=== PATIENT | male | born 1970 | race Caucasian/White ===

== ENCOUNTER 2017-11-28 08:25 | Day surgery (SDC) | payer MEDICARE, OTHER ==
[~2017-11-28] VITALS: Ht 175.3 cm; Wt 136.4 kg
[~2017-11-28 08:25] MED LIST: ALBU8.5H8 IH; ARIP15TA2 PO; ASPI81 PO; ATOR20TA86 PO; BACL10TA PO; DOCU250C16 PO; FLUT12AE3 IH; GABA-529 PO; GLIP10 PO; HYDR50CA10 PO; INSLAN SQ; INSNOV SQ; ISOS30TA6 PO; LINA5TAB PO; LOSA50TA37 PO; MELO-107 PO; METF-444 PO; METO25 PO; MIRT30 PO; PERCT10 PO; THEO200T39 PO; TRAM50TA4 PO; TRIL8 PO
[2017-11-28] MEDS ORDERED: METOPROLOL TARTRATE 50 MG TABLET PO PRN (08:30)
[2017-11-28] MEDS ORDERED: 0.9% SODIUM CHLORIDE 10 ML SYRINGE IVP PRN (08:30)
[2017-11-28 09:00] LABS: ANION GAP 8 mmol/L (8-16); CALCIUM, TOTAL 8.4 mg/dL (8.8-10.5); CARBON DIOXIDE 30 mmol/L (22-29); CHLORIDE 105 mmol/L (98-107); CREATININE 0.86 mg/dL (0.60-1.30); GLOMERULAR FILTR. RATE CALC > 60 mL/min (>60); GLUCOSE,RANDOM 147 mg/dL (70-110); POTASSIUM 3.9 mmol/L (3.5-5.1); SODIUM SERUM 143 mmol/L (136-145); UREA NITROGEN, BLOOD 5 mg/dL (7-18)
[2017-11-28] MEDS ORDERED: METOPROLOL TARTRATE 50 MG TABLET ONE (09:00)
[2017-11-28] MEDS ORDERED: OMEP20 PO (09:11)
[2017-11-28] MEDS ORDERED: SACU1TAB PO (09:11)
[2017-11-28] MEDS ORDERED: LOPE2 PO (09:11)
[2017-11-28] MEDS ORDERED: NAPR-58 PO (09:11)
[2017-11-28] MEDS ORDERED: LIRA0.6P SQ (09:11)
[2017-11-28] MEDS ORDERED: NITR.4P TD (09:11)
[2017-11-28] MEDS ORDERED: ALBU8HFA PO (09:11)
[2017-11-28] MEDS ORDERED: FLUT110HFA IH (09:11)
== END 2017-11-28 10:20 | disposition home or self-care (01) ==
LOC: SURGERY 08:25 → EDSTATUS 10:00 → SURGERY 10:20
PROVIDERS: ATTEND Internal Medicine Cardiovascular Disease
DX: I42.5 Other restrictive cardiomyopathy (principal); Z53.8 Procedure and treatment not carried out for other reasons; I21.3 ST elevation (STEMI) myocardial infarction of unspecified site; F20.89 Other schizophrenia; F10.21 Alcohol dependence, in remission; E11.40 Type 2 diabetes mellitus with diabetic neuropathy, unspecified; I10 Essential (primary) hypertension; G47.30 Sleep apnea, unspecified; Z79.82 Long term (current) use of aspirin; Z79.4 Long term (current) use of insulin; Z79.891 Long term (current) use of opiate analgesic; Z79.84 Long term (current) use of oral hypoglycemic drugs; Z79.899 Other long term (current) drug therapy; Z98.890 Other specified postprocedural states
CPT/HCPCS: 93005

== ENCOUNTER 2017-12-07 08:07 | Day surgery (SDC) | payer MEDICARE, OTHER ==
[~2017-12-07] VITALS: Ht 175.3 cm; Wt 136.4 kg
[~2017-12-07 08:07] MED LIST changes: +0.9% SODIUM CHLORIDE 10 ML SYRINGE IVP PRN; +ALBU8HFA PO; +LIRA0.6P SQ; +LOPE2 PO; +NAPR-58 PO; +NITR.4P TD; +OMEP20 PO; +SACU1TAB PO
[2017-12-07] MEDS ORDERED: METOPROLOL TARTRATE 50 MG TABLET ONE (08:32)
[2017-12-07 08:56] LABS: ANION GAP 7 mmol/L (8-16); CALCIUM, TOTAL 8.4 mg/dL (8.8-10.5); CARBON DIOXIDE 30 mmol/L (22-29); CHLORIDE 102 mmol/L (98-107); CREATININE 0.75 mg/dL (0.60-1.30); GLOMERULAR FILTR. RATE CALC > 60 mL/min (>60); GLUCOSE,RANDOM 130 mg/dL (70-110); POTASSIUM 3.9 mmol/L (3.5-5.1); SODIUM SERUM 139 mmol/L (136-145); UREA NITROGEN, BLOOD 9 mg/dL (7-18)
[2017-12-07] MEDS ORDERED: METOPROLOL TARTRATE 50 MG TABLET PO ONE (09:00)
[2017-12-07] MEDS ORDERED: METOPROLOL TARTRATE 5 MG/5 ML VIAL ONE ×6 (10:00→13:07)
[2017-12-07] MEDS ORDERED: METOPROLOL TARTRATE 5 MG/5 ML VIAL IVP ONE ×6 (10:15→13:15)
== END 2017-12-07 13:40 | disposition home or self-care (01) ==
LOC: SURGERY 08:07 → EDSTATUS 10:00 → SURGERY 13:40
PROVIDERS: ATTEND Internal Medicine Cardiovascular Disease
DX: I21.3 ST elevation (STEMI) myocardial infarction of unspecified site (principal); Z53.8 Procedure and treatment not carried out for other reasons; I42.5 Other restrictive cardiomyopathy; I11.0 Hypertensive heart disease with heart failure; I50.9 Heart failure, unspecified; I24.8 Other forms of acute ischemic heart disease; I08.3 Combined rheumatic disorders of mitral, aortic and tricuspid valves; J45.998 Other asthma; E78.00 Pure hypercholesterolemia, unspecified; F20.89 Other schizophrenia; F32.9 Major depressive disorder, single episode, unspecified; K21.0 Gastro-esophageal reflux disease with esophagitis; G47.33 Obstructive sleep apnea (adult) (pediatric); E11.40 Type 2 diabetes mellitus with diabetic neuropathy, unspecified; F10.21 Alcohol dependence, in remission; F12.21 Cannabis dependence, in remission; Z79.4 Long term (current) use of insulin; Z79.84 Long term (current) use of oral hypoglycemic drugs; Z79.891 Long term (current) use of opiate analgesic; Z79.82 Long term (current) use of aspirin; Z79.899 Other long term (current) drug therapy; Z98.890 Other specified postprocedural states
CPT/HCPCS: 36415; 80048; 93005; J3490

== ENCOUNTER → 2018-01-17 | Day surgery (SDC) | payer MEDICARE, OTHER ==
[~2018-01-17] VITALS: Ht 177.8 cm; Wt 137.0 kg
[~2018-01-17] MED LIST changes: +METOPROLOL TARTRATE 5 MG/5 ML VIAL IVP ONE; +METOPROLOL TARTRATE 5 MG/5 ML VIAL ONE; +METOPROLOL TARTRATE 50 MG TABLET PO PRN
[2018-01-17 09:13] LABS: ANION GAP 9 mmol/L (8-16); CALCIUM, TOTAL 8.7 mg/dL (8.8-10.5); CARBON DIOXIDE 28 mmol/L (22-29); CHLORIDE 102 mmol/L (98-107); CREATININE 0.68 mg/dL (0.60-1.30); GLOMERULAR FILTR. RATE CALC > 60 mL/min (>60); GLUCOSE,RANDOM 172 mg/dL (70-110); POTASSIUM 3.8 mmol/L (3.5-5.1); SODIUM SERUM 139 mmol/L (136-145); UREA NITROGEN, BLOOD 11 mg/dL (7-18)
== END | disposition home or self-care (01) ==
LOC: EDSTATUS 01-03 10:30 → SURGERY 08:20
PROVIDERS: ATTEND Internal Medicine Cardiovascular Disease
DX: I24.8 Other forms of acute ischemic heart disease (principal); Z53.8 Procedure and treatment not carried out for other reasons; J45.998 Other asthma; I11.0 Hypertensive heart disease with heart failure; I50.9 Heart failure, unspecified; E11.40 Type 2 diabetes mellitus with diabetic neuropathy, unspecified; F20.89 Other schizophrenia; E78.00 Pure hypercholesterolemia, unspecified; F32.9 Major depressive disorder, single episode, unspecified; K21.0 Gastro-esophageal reflux disease with esophagitis; I08.3 Combined rheumatic disorders of mitral, aortic and tricuspid valves; I25.2 Old myocardial infarction; F10.21 Alcohol dependence, in remission; F12.21 Cannabis dependence, in remission; G47.33 Obstructive sleep apnea (adult) (pediatric); G89.29 Other chronic pain; Z90.89 Acquired absence of other organs; Z79.4 Long term (current) use of insulin; Z87.01 Personal history of pneumonia (recurrent); Z87.891 Personal history of nicotine dependence; Z79.01 Long term (current) use of anticoagulants; Z79.891 Long term (current) use of opiate analgesic; Z79.82 Long term (current) use of aspirin; Z79.84 Long term (current) use of oral hypoglycemic drugs; Z79.899 Other long term (current) drug therapy; Z98.890 Other specified postprocedural states; Z83.3 Family history of diabetes mellitus; Z82.49 Family history of ischemic heart disease and other diseases of the circulatory system
CPT/HCPCS: 36415; 80048; 93005; J3490

== ENCOUNTER 2018-02-02 13:06 | Inpatient (IN) | payer MEDICARE, OTHER ==
[~2018-02-02] VITALS: Ht 175.3 cm; Wt 140.9 kg
[~2018-02-02 13:06] MED LIST changes: -0.9% SODIUM CHLORIDE 10 ML SYRINGE IVP PRN; -ATOR20TA86 PO; +ATOR40TA28 PO; +LISI10TA PO; +LOSA50TA25 PO; -LOSA50TA37 PO; +METO-391 PO; -METO25 PO; -METOPROLOL TARTRATE 5 MG/5 ML VIAL IVP ONE; -METOPROLOL TARTRATE 5 MG/5 ML VIAL ONE; -METOPROLOL TARTRATE 50 MG TABLET PO PRN; +TICA90TA PO
[2018-02-02 13:46] LABS: BASOPHILS % (AUTO) 0.4 % (0.0-2.0); EOSINOPHILS % (AUTO) 0.8 % (1.0-6.0); HEMATOCRIT 43.1 % (41-53); HEMOGLOBIN 14.4 g/dL (13.5-17.5); LYMPHOCYTES # (AUTO) 1.5 K/uL (1.0-4.8); LYMPHOCYTES % (AUTO) 11.5 % (22.0-44.0); MEAN CORPUSCULAR HEMOGLOBIN 30.1 pg (26.0-34.0); MEAN CORPUSCULAR HGB CONC 33.4 G/dL (31.0-37.0); MEAN CORPUSCULAR VOLUME 90 fL (80-100); MONOCYTES # (AUTO) 0.9 K/uL (0.1-1.0); MONOCYTES % (AUTO) 7.2 % (2.0-9.0); NEUTROPHILS # (AUTO) 10.3 K/uL (1.8-7.7); NEUTROPHILS % (AUTO) 80.1 % (40.0-70.0); PLATELET COUNT (AUTO) 186 K/uL (150-450); RED BLOOD CELL COUNT(AUTO) 4.78 MIL/uL (4.50-5.90); RED CELL DISTRIBUTION WIDTH 13.8 % (11.5-14.5)
[2018-02-02 13:55] LABS: ANION GAP 10 mmol/L (8-16); CALCIUM, TOTAL 8.9 mg/dL (8.8-10.5); CARBON DIOXIDE 26 mmol/L (22-29); CHLORIDE 101 mmol/L (98-107); CREATININE 0.91 mg/dL (0.60-1.30); GLOMERULAR FILTR. RATE CALC > 60 mL/min (>60); GLUCOSE,RANDOM 203 mg/dL (70-110); POTASSIUM 4.1 mmol/L (3.5-5.1); SODIUM SERUM 137 mmol/L (136-145); UREA NITROGEN, BLOOD 11 mg/dL (7-18)
[2018-02-02 14:01] LABS: ALANINE AMINOTRANSFERASE 45 U/L (12-78); ALBUMIN 3.7 g/dL (3.4-5.0); ALKALINE PHOSPHATASE 89 U/L (46-116); ASPARTATE AMINOTRANSFERASE 22 U/L (15-37); BILIRUBIN,TOTAL 0.7 mg/dL (0.1-1.0); TOTAL PROTEIN, SERUM 7.2 g/dL (6.4-8.2)
[2018-02-02] MEDS ORDERED: MAGNESIUM HYDROXIDE SUSPENSION 30 ML UDCUP PO PRN (16:00)
[2018-02-02] MEDS ORDERED: ACETAMINOPHEN 325 MG TABLET PO PRN (16:00)
[2018-02-02] MEDS ORDERED: ALBUTEROL SULFATE 2.5 MG/0.5 ML NEB SOLUTION NEB PRN (16:00)
[2018-02-02] MEDS ORDERED: DEXTROSE 50%-WATER 25 GM/50 ML SYRINGE IVP PRN (16:00)
[2018-02-02] MEDS: OxyCODONE HCL/ACETAMINOPHEN 5-325 MG TABLET PO PRN ×2 (18:07→23:39)
[2018-02-02] MEDS: INSULIN LISPRO 100 UNITS/ML SQ PRN (18:11)
[2018-02-02 18:12] VITALS: BP 103/71
[2018-02-02 19:53] LABS: GLUCOMETER DEV NAME(LOC) 5N 1P; GLUCOSE,POINT OF CARE 251 MG/DL (70-110)
[2018-02-02 19:57] VITALS: BP 118/73
[2018-02-02] MEDS ORDERED: ATORVASTATIN CALCIUM 40 MG TABLET PO SCH (21:00)
[2018-02-02] MEDS: METOPROLOL TARTRATE 25 MG TABLET PO SCH (21:04)
[2018-02-02] MEDS: HEPARIN SODIUM,PORCINE 5,000 UNITS/ML VIAL SQ SCH (21:04)
[2018-02-02] MEDS: DOCUSATE SODIUM 100 MG CAPSULE PO SCH (21:04)
[2018-02-02 23:34] VITALS: BP 111/70
[2018-02-02] MEDS: TICAGRELOR 90 MG TABLET PO SCH (23:39)
[2018-02-03 03:36] VITALS: BP 140/93
[2018-02-03] MEDS: OxyCODONE HCL/ACETAMINOPHEN 5-325 MG TABLET PO PRN ×2 (06:20→11:26)
[2018-02-03 07:02] LABS: BASOPHILS % (AUTO) 0.4 % (0.0-2.0); EOSINOPHILS % (AUTO) 2.2 % (1.0-6.0); HEMATOCRIT 42.5 % (41-53); HEMOGLOBIN 14.3 g/dL (13.5-17.5); LYMPHOCYTES # (AUTO) 2.3 K/uL (1.0-4.8); LYMPHOCYTES % (AUTO) 30.5 % (22.0-44.0); MEAN CORPUSCULAR HEMOGLOBIN 30.3 pg (26.0-34.0); MEAN CORPUSCULAR HGB CONC 33.6 G/dL (31.0-37.0); MEAN CORPUSCULAR VOLUME 90 fL (80-100); MONOCYTES # (AUTO) 0.5 K/uL (0.1-1.0); MONOCYTES % (AUTO) 6.8 % (2.0-9.0); NEUTROPHILS # (AUTO) 4.5 K/uL (1.8-7.7); NEUTROPHILS % (AUTO) 60.1 % (40.0-70.0); PLATELET COUNT (AUTO) 172 K/uL (150-450); RED BLOOD CELL COUNT(AUTO) 4.71 MIL/uL (4.50-5.90); RED CELL DISTRIBUTION WIDTH 13.6 % (11.5-14.5)
[2018-02-03 07:41] VITALS: BP 146/91
[2018-02-03] MEDS: METOPROLOL TARTRATE 25 MG TABLET PO SCH (08:01)
[2018-02-03] MEDS: TICAGRELOR 90 MG TABLET PO SCH (08:01)
[2018-02-03] MEDS: DOCUSATE SODIUM 100 MG CAPSULE PO SCH (08:02)
[2018-02-03] MEDS: HEPARIN SODIUM,PORCINE 5,000 UNITS/ML VIAL SQ SCH (08:02)
[2018-02-03] MEDS ORDERED: ASPIRIN 81 MG CHEWABLE TABLET PO SCH (09:00)
[2018-02-03] MEDS ORDERED: LISINOPRIL 5 MG TABLET PO SCH (09:00)
[2018-02-03] MEDS ORDERED: PANTOPRAZOLE SODIUM 40 MG DR TABLET PO SCH (09:00)
[2018-02-03 11:02] VITALS: BP 149/77
[2018-02-03] MEDS: INSULIN LISPRO 100 UNITS/ML SQ PRN (11:29)
[2018-02-03 12:09] LABS: GLUCOMETER DEV NAME(LOC) 5N 1P; GLUCOSE,POINT OF CARE 195 MG/DL (70-110)
[2018-02-03 12:09] LABS: GLUCOMETER DEV NAME(LOC) 5N 1P; GLUCOSE,POINT OF CARE 124 MG/DL (70-110)
[2018-02-03 12:09] LABS: GLUCOMETER DEV NAME(LOC) 5N 1P; GLUCOSE,POINT OF CARE 145 MG/DL (70-110)
== END 2018-02-03 12:30 | disposition home or self-care (01) | DRG 191 ==
LOC: EMS 13:08 → 5N 16:55
PROVIDERS: ADMIT Internal Medicine; ATTEND Internal Medicine
DX: J44.9 Chronic obstructive pulmonary disease, unspecified (principal); Z68.42 Body mass index [BMI] 45.0-49.9, adult; I10 Essential (primary) hypertension; E11.9 Type 2 diabetes mellitus without complications; F10.20 Alcohol dependence, uncomplicated; I25.10 Atherosclerotic heart disease of native coronary artery without angina pectoris; G47.33 Obstructive sleep apnea (adult) (pediatric); E66.01 Morbid (severe) obesity due to excess calories; R62.50 Unspecified lack of expected normal physiological development in childhood; Z87.891 Personal history of nicotine dependence; Z79.82 Long term (current) use of aspirin; Z95.5 Presence of coronary angioplasty implant and graft
CPT/HCPCS: 87081; 93005; 99285; J1644

== ENCOUNTER 2018-08-06 13:43 | Emergency (ER) | payer MEDICARE, OTHER ==
[~2018-08-06] VITALS: Ht 175.3 cm; Wt 136.4 kg
[~2018-08-06 13:43] MED LIST changes: -BACL10TA PO; -GLIP10 PO; -HYDR50CA10 PO; -INSLAN SQ; -LINA5TAB PO; -LIRA0.6P SQ; -LOPE2 PO; -LOSA50TA25 PO; -METO-391 PO; -MIRT30 PO; -NAPR-58 PO; -PERCT10 PO; -SACU1TAB PO; -THEO200T39 PO; -TRAM50TA4 PO; -TRIL8 PO
[2018-08-06] MEDS ORDERED: METO-558 PO (13:51)
[2018-08-06] MEDS ORDERED: MIRT30 PO (13:51)
[2018-08-06] MEDS ORDERED: HYDR50CA10 PO (13:51)
[2018-08-06 16:13] VITALS: BP 145/70
== END 2018-08-06 16:00 | disposition home or self-care (01) ==
LOC: EMS 13:43
DX: S80.12XA Contusion of left lower leg, initial encounter (principal); J40 Bronchitis, not specified as acute or chronic; F31.9 Bipolar disorder, unspecified; E11.9 Type 2 diabetes mellitus without complications; I10 Essential (primary) hypertension; Z79.4 Long term (current) use of insulin; Z79.82 Long term (current) use of aspirin; Z79.899 Other long term (current) drug therapy; Z87.891 Personal history of nicotine dependence; X58.XXXA Exposure to other specified factors, initial encounter; Y93.89 Activity, other specified; Y92.89 Other specified places as the place of occurrence of the external cause; Y99.8 Other external cause status